=== PATIENT | male | born 1950 | race Caucasian/White ===

== ENCOUNTER 2018-07-20 12:13 | Inpatient (IN) | payer MEDICARE, OTHER ==
[~2018-07-20] VITALS: Ht 172.7 cm; Wt 98.3 kg
[2018-07-20 17:15] VITALS: BP 145/81
[2018-07-20] MEDS ORDERED: CYAN100028 PO (18:26)
[2018-07-20] MEDS ORDERED: ASPI81TA45 PO (18:26)
[2018-07-20] MEDS ORDERED: INSU100V8 SQ (18:26)
[2018-07-20] MEDS ORDERED: INSU100C5 SQ-INSULIN (18:26)
[2018-07-20] MEDS ORDERED: FLUT15.88 NAS (18:26)
[2018-07-20] MEDS ORDERED: SCOP1PAT11 TD (18:26)
[2018-07-20] MEDS ORDERED: OMEG1CAP23 PO (18:26)
[2018-07-20] MEDS ORDERED: CHOL100012 PO (18:26)
[2018-07-20] MEDS ORDERED: BUME0.5T PO (18:26)
[2018-07-20] MEDS ORDERED: GUAI200T3 PO (18:26)
[2018-07-20] MEDS ORDERED: MONT10TA9 PO (18:26)
[2018-07-20] MEDS ORDERED: VALS160T3 PO (18:26)
[2018-07-20] MEDS ORDERED: AMLO-150 PO (18:26)
[2018-07-20] MEDS ORDERED: METF500T17 PO (18:26)
[2018-07-20] MEDS ORDERED: LANS15CA5 PO (18:26)
[2018-07-20] MEDS ORDERED: METO25TA35 PO (18:26)
[2018-07-20] MEDS ORDERED: IPRA15SP NAS (18:26)
[2018-07-20] MEDS ORDERED: CETI10TA18 PO (18:26)
[2018-07-20] MEDS ORDERED: ASCO500T5 PO (18:26)
[2018-07-20] MEDS ORDERED: ACET-709 PO (18:26)
[2018-07-20] MEDS ORDERED: INSULIN LISPRO 100 UNITS/ML, PEN SQ-INSULIN SCH (19:00)
[2018-07-20] MEDS ORDERED: BISACODYL 10 MG SUPP PR PRN (19:00)
[2018-07-20] MEDS ORDERED: POLYETHYLENE GLYCOL 17 GM PACKET PO PRN (19:00)
[2018-07-20] MEDS ORDERED: ONDANSETRON ODT 4 MG PO PRN (19:00)
[2018-07-20] MEDS ORDERED: NITROGLYCERIN 0.4 MG BOTTLE (25 TABS) SL PRN (19:00)
[2018-07-20] MEDS ORDERED: APAP/CODEINE 300/30MG TABLET PO PRN (19:00)
[2018-07-20] MEDS ORDERED: ACETAMINOPHEN 325 MG TABLET PO PRN (19:00)
[2018-07-20] MEDS ORDERED: HEPARIN 5,000 UNITS/ML, 1ML IV ONE (19:30)
[2018-07-20] MEDS ORDERED: HEPARIN 5,000 UNITS/ML, 1ML IV PRN (19:30)
[2018-07-20] MEDS ORDERED: HEPARIN 25,000 UNITS/500ML PMX 500 ML IV PRN (19:30)
[2018-07-20 19:58] VITALS: BP 140/77
[2018-07-20] MEDS: metFORMIN 500 MG TABLET PO SCH (21:00)
[2018-07-20 21:45] VITALS: BP 138/72
[2018-07-20] MEDS: SODIUM CHLORIDE FLUSH 10ML SYR IVF SCH (21:48)
[2018-07-20] MEDS: METOPROLOL TARTRATE 25 MG TABLET PO SCH (21:49)
[2018-07-20] MEDS: OMEGA-3/FISH OIL CAPSULE PO SCH (21:49)
[2018-07-20] MEDS: MONTELUKAST 10 MG TABLET PO SCH (21:49)
[2018-07-20] MEDS: VALSARTAN 160 MG TABLET PO SCH (21:49)
[2018-07-20 22:00] LABS: MICROSCOPIC AUTO
[2018-07-20 22:05] LABS: CULTURE INDICATED? NO
[2018-07-20] MEDS: morphine SULFATE 10 MG/ML, 1ML IVPush PRN (22:31)
[2018-07-21 01:25] VITALS: BP 116/72
[2018-07-21 05:20] LABS: MEAN CORPUSCULAR HEMOGLOBIN 29.8 pg (27.5-34.5); MEAN CORPUSCULAR HGB CONC 32.7 g/dL (33.2-36.2); MEAN CORPUSCULAR VOLUME 91.1 fL (81-97); MEAN PLATELET VOLUME 9.8 fL (7.4-10.4); PLATELET COUNT 216 x10^3/uL (130-400); RED BLOOD COUNT 4.63 x10^6/uL (4.38-5.82); RED CELL DISTRIBUTION WIDTH 14.5 % (9.4-14.8)
[2018-07-21 05:27] LABS: ALANINE AMINOTRANSFERASE 34 U/L (12-78); ALBUMIN 2.9 g/dL (3.4-5.0); ANION GAP 7 mmol/L (5-15); CALCIUM 8.5 mg/dL (8.5-10.1); CHLORIDE 100 mmol/L (98-107)
[2018-07-21 05:30] LABS: ALKALINE PHOSPHATASE 38 U/L (45-117); BILIRUBIN,TOTAL 0.8 mg/dL (0.2-1.0); CHOL/HDL RATIO 4.3; CHOLESTEROL, TOTAL 164 mg/dL (140-239); CREATININE 0.94 mg/dL (0.7-1.3); HDL CHOL % 23 % (26-37); HDL CHOLESTEROL (DIRECT) 38 mg/dL (40-60); LDL CHOLESTEROL,CALCULATED 73 mg/dL (54-169); LDL/HDL RATIO 1.9 (0.5-3.0); TOTAL PROTEIN 6.4 g/dL (6.4-8.2); TRIGLYCERIDES 263 mg/dL (50-200); VLDL CHOLESTEROL 53 mg/dL (0-25)
[2018-07-21] MEDS: morphine SULFATE 10 MG/ML, 1ML IVPush PRN ×4 (06:15→22:06)
[2018-07-21] MEDS: ASPIRIN 81 MG TABLET CHEW PO SCH (06:15)
[2018-07-21 06:30] LABS: BASOPHILS # (AUTO) 0.01 x10^3/uL (0-0.1); BASOPHILS % (AUTO) 0 % (0-1); EOSINOPHILS # (AUTO) 0.29 x10^3/uL (0-0.4); EOSINOPHILS % (AUTO) 2 % (1-7); LYMPHOCYTES # (AUTO) 2.16 x10^3/uL (1-3.4); LYMPHOCYTES % (AUTO) 13 % (22-44); MD SCAN; MONOCYTES % (AUTO) 7 % (2-9); NEUTROPHILS # (AUTO) 13.39 x10^3/uL (1.8-6.8); NEUTROPHILS % (AUTO) 79 % (42-75)
[2018-07-21] MEDS: metFORMIN 500 MG TABLET PO SCH ×2 (08:08→21:57)
[2018-07-21] MEDS: AMLODIPINE 5 MG TABLET PO SCH (09:00)
[2018-07-21] MEDS: ASCORBIC ACID 500 MG TABLET PO SCH (09:00)
[2018-07-21] MEDS: OMEGA-3/FISH OIL CAPSULE PO SCH ×2 (09:00→21:57)
[2018-07-21] MEDS ORDERED: ASPIRIN 81 MG TABLET EC PO SCH (09:00)
[2018-07-21] MEDS: CETIRIZINE 10 MG TABLET PO SCH (09:00)
[2018-07-21] MEDS: SENNA/DOCUSATE TABLET PO SCH (09:00)
[2018-07-21] MEDS: CYANOCOBALAMIN 1,000 MCG TABLET PO SCH (09:00)
[2018-07-21] MEDS: CHOLECALCIFEROL 1,000 UNIT TABLET PO SCH (09:00)
[2018-07-21 09:57] VITALS: BP 112/69
[2018-07-21 10:34] VITALS: BP 118/67
[2018-07-21] MEDS: PANTOPROZOLE 40MG TABLET PO SCH (10:43)
[2018-07-21] MEDS: FLUTICASONE NASAL SPRAY 16GM NAS SCH (10:44)
[2018-07-21] MEDS: METOPROLOL TARTRATE 25 MG TABLET PO SCH ×2 (10:44→21:58)
[2018-07-21] MEDS: INSULIN LISPRO 100 UNITS/ML, PEN SQ-INSULIN SCH ×3 (11:00→18:44)
[2018-07-21] MEDS: BUMETANIDE 1 MG TABLET PO SCH (11:17)
[2018-07-21] MEDS: INSULIN GLARGINE 100 UNITS/ML, PEN SQ-INSULIN SCH (11:18)
[2018-07-21] MEDS: VALSARTAN 160 MG TABLET PO SCH ×2 (11:18→21:57)
[2018-07-21] MEDS: SODIUM CHLORIDE FLUSH 10ML SYR IVF SCH ×2 (11:19→21:57)
[2018-07-21] MEDS ORDERED: HEPARIN 1,000 UNITS/ML, 10ML ONE (12:44)
[2018-07-21] MEDS ORDERED: TICAGRELOR 90 MG TABLET ONE (12:44)
[2018-07-21] MEDS ORDERED: BIVALIRUDIN 250 MG ONE (12:44)
[2018-07-21] MEDS ORDERED: MIDAZOLAM 1 MG/ML, 5ML ONE (12:44)
[2018-07-21] MEDS ORDERED: FENTANYL PF 100 MCG/2ML ONE (12:44)
[2018-07-21] MEDS ORDERED: LIDOCAINE 2%, 20ML ONE (12:44)
[2018-07-21] MEDS ORDERED: VERAPAMIL 2.5 MG/ML, 2ML ONE (12:44)
[2018-07-21 15:32] VITALS: BP 107/65
[2018-07-21 19:28] VITALS: BP 109/68
[2018-07-21] MEDS: MONTELUKAST 10 MG TABLET PO SCH (22:06)
[2018-07-22 00:34] VITALS: BP 110/65
[2018-07-22 05:01] LABS: ANION GAP 6 mmol/L (5-15); CALCIUM 8.4 mg/dL (8.5-10.1); CHLORIDE 101 mmol/L (98-107); CREATININE 0.94 mg/dL (0.7-1.3)
[2018-07-22] MEDS: ASPIRIN 81 MG TABLET CHEW PO SCH (06:06)
[2018-07-22] MEDS: morphine SULFATE 10 MG/ML, 1ML IVPush PRN ×4 (06:12→22:00)
[2018-07-22 08:19] VITALS: BP 103/64
[2018-07-22] MEDS: INSULIN LISPRO 100 UNITS/ML, PEN SQ-INSULIN SCH ×3 (08:21→16:41)
[2018-07-22] MEDS: FLUTICASONE NASAL SPRAY 16GM NAS SCH (08:27)
[2018-07-22] MEDS: SENNA/DOCUSATE TABLET PO SCH (08:30)
[2018-07-22] MEDS: ASCORBIC ACID 500 MG TABLET PO SCH (08:31)
[2018-07-22] MEDS: CHOLECALCIFEROL 1,000 UNIT TABLET PO SCH (08:32)
[2018-07-22] MEDS: METOPROLOL TARTRATE 25 MG TABLET PO SCH (08:33)
[2018-07-22] MEDS: VALSARTAN 160 MG TABLET PO SCH ×2 (08:35→21:02)
[2018-07-22] MEDS: CYANOCOBALAMIN 1,000 MCG TABLET PO SCH (08:36)
[2018-07-22] MEDS: CETIRIZINE 10 MG TABLET PO SCH (08:36)
[2018-07-22] MEDS: BUMETANIDE 1 MG TABLET PO SCH (08:37)
[2018-07-22] MEDS: AMLODIPINE 5 MG TABLET PO SCH (08:38)
[2018-07-22] MEDS: OMEGA-3/FISH OIL CAPSULE PO SCH ×2 (08:38→21:02)
[2018-07-22] MEDS: PANTOPROZOLE 40MG TABLET PO SCH (08:39)
[2018-07-22] MEDS: metFORMIN 500 MG TABLET PO SCH ×2 (08:40→21:00)
[2018-07-22] MEDS: INSULIN GLARGINE 100 UNITS/ML, PEN SQ-INSULIN SCH (08:51)
[2018-07-22] MEDS: SODIUM CHLORIDE FLUSH 10ML SYR IVF SCH ×2 (09:00→21:02)
[2018-07-22 09:12] VITALS: BP 115/68
[2018-07-22] MEDS: CLOPIDOGREL 75 MG TABLET PO SCH (11:36)
[2018-07-22 15:50] VITALS: BP 98/61
[2018-07-22 18:12] VITALS: BP 110/69
[2018-07-22] MEDS: CARVEDILOL 25 MG TABLET PO SCH (18:14)
[2018-07-22 19:19] VITALS: BP 102/63
[2018-07-22] MEDS: MONTELUKAST 10 MG TABLET PO SCH (21:04)
[2018-07-23 00:42] VITALS: BP 92/57
[2018-07-23] MEDS: ASPIRIN 81 MG TABLET CHEW PO SCH (06:26)
[2018-07-23] MEDS: CARVEDILOL 25 MG TABLET PO SCH ×2 (06:29→08:38)
[2018-07-23 07:31] VITALS: BP 109/65
[2018-07-23 07:39] LABS: ALBUMIN 2.7 g/dL (3.4-5.0); ANION GAP 8 mmol/L (5-15); CALCIUM 8.4 mg/dL (8.5-10.1); CHLORIDE 102 mmol/L (98-107); CREATININE 0.94 mg/dL (0.7-1.3)
[2018-07-23] MEDS: INSULIN LISPRO 100 UNITS/ML, PEN SQ-INSULIN SCH ×3 (08:34→17:23)
[2018-07-23] MEDS: SODIUM CHLORIDE FLUSH 10ML SYR IVF SCH (08:35)
[2018-07-23] MEDS: ASCORBIC ACID 500 MG TABLET PO SCH (08:37)
[2018-07-23] MEDS: CHOLECALCIFEROL 1,000 UNIT TABLET PO SCH (08:37)
[2018-07-23] MEDS: CLOPIDOGREL 75 MG TABLET PO SCH (08:37)
[2018-07-23] MEDS: OMEGA-3/FISH OIL CAPSULE PO SCH (08:37)
[2018-07-23] MEDS: FLUTICASONE NASAL SPRAY 16GM NAS SCH (08:37)
[2018-07-23] MEDS: PANTOPROZOLE 40MG TABLET PO SCH (08:38)
[2018-07-23] MEDS: SENNA/DOCUSATE TABLET PO SCH (08:38)
[2018-07-23] MEDS: CETIRIZINE 10 MG TABLET PO SCH (08:39)
[2018-07-23] MEDS: metFORMIN 500 MG TABLET PO SCH (08:40)
[2018-07-23] MEDS: AMLODIPINE 5 MG TABLET PO SCH (08:40)
[2018-07-23] MEDS: CYANOCOBALAMIN 1,000 MCG TABLET PO SCH (08:40)
[2018-07-23] MEDS: INSULIN GLARGINE 100 UNITS/ML, PEN SQ-INSULIN SCH (08:44)
[2018-07-23] MEDS: BUMETANIDE 1 MG TABLET PO SCH (08:54)
[2018-07-23] MEDS: VALSARTAN 160 MG TABLET PO SCH (08:54)
[2018-07-23] MEDS ORDERED: SPIRONOLACTONE 25 MG TABLET PO SCH (09:00)
[2018-07-23 13:14] VITALS: BP 107/72
[2018-07-23] MEDS ORDERED: NITR0.4T28 SL (16:21)
[2018-07-23] MEDS ORDERED: ROSU5TAB PO (16:21)
[2018-07-23] MEDS ORDERED: CLOP75TA PO (16:21)
[2018-07-23] MEDS ORDERED: SPIR25TA PO (16:21)
[2018-07-23] MEDS ORDERED: CARV25TA12 PO (16:21)
== END 2018-07-23 18:39 | disposition home or self-care (01) | DRG 281 ==
LOC: 5SO 16:20
PROVIDERS: ADMIT Internal Medicine; ATTEND Internal Medicine
PROC: B2181ZZ Fluoroscopy of Left Internal Mammary Bypass Graft using Low Osmolar Contrast (ICD-10-PCS; principal; 2018-07-21)
PROC: 4A023N7 Measurement of Cardiac Sampling and Pressure, Left Heart, Percutaneous Approach (ICD-10-PCS; 2018-07-21)
PROC: B2151ZZ Fluoroscopy of Left Heart using Low Osmolar Contrast (ICD-10-PCS; 2018-07-21)
PROC: B2111ZZ Fluoroscopy of Multiple Coronary Arteries using Low Osmolar Contrast (ICD-10-PCS; 2018-07-21)
PROC: B2121ZZ Fluoroscopy of Single Coronary Artery Bypass Graft using Low Osmolar Contrast (ICD-10-PCS; 2018-07-21)
DX: I21.4 Non-ST elevation (NSTEMI) myocardial infarction (principal); I47.2 Ventricular tachycardia; E11.65 Type 2 diabetes mellitus with hyperglycemia; E66.9 Obesity, unspecified; E78.5 Hyperlipidemia, unspecified; I10 Essential (primary) hypertension; I25.10 Atherosclerotic heart disease of native coronary artery without angina pectoris; C44.90 Unspecified malignant neoplasm of skin, unspecified; I25.5 Ischemic cardiomyopathy; I08.2 Rheumatic disorders of both aortic and tricuspid valves; E78.1 Pure hyperglyceridemia; Z95.1 Presence of aortocoronary bypass graft; J44.9 Chronic obstructive pulmonary disease, unspecified; K21.9 Gastro-esophageal reflux disease without esophagitis; Z79.4 Long term (current) use of insulin; Z88.8 Allergy status to other drugs, medicaments and biological substances; Z79.899 Other long term (current) drug therapy; Z82.3 Family history of stroke; Z87.891 Personal history of nicotine dependence; Z68.33 Body mass index [BMI] 33.0-33.9, adult; I25.2 Old myocardial infarction
CPT/HCPCS: 36415; 80048; 80053; 80061; 80069; 81001; 82962; 83036; 83735; 84484; 85025; 85520; 93005; 93459; 99156; 99157; C1760; C1769; C1894; C8929; G0378; J0583; J1644; J2250; J3010; J3490; Q9957; J1815; J2270; Q9967